=== PATIENT | male | born 2000 | race Two or more races ===

== ENCOUNTER 2023-09-25 21:02 | Emergency (ER) | payer OTHER ==
[~2023-09-25] VITALS: Ht 188 cm; Wt 97.7 kg
[2023-09-25 21:15] VITALS: BP 153/91; PULSE 72; RESP 16; TEMP 98
[2023-09-25] MEDS: AZITHROMYCIN 500 MG TABLET PO ONE (23:26)
[2023-09-25] MEDS: LIDOCAINE/PF 1% 2 ML VIAL IM ONE (23:27)
[2023-09-25] MEDS: CefTRIAXone SODIUM 1 GM/VIAL IM ONE (23:27)
== END 2023-09-25 23:45 | disposition home or self-care (01) ==
LOC: EMS 21:02
DX: N34.2 Other urethritis (principal); A74.9 Chlamydial infection, unspecified
CPT/HCPCS: 99283; 96372; J0696; J3490; Q9967